=== PATIENT | male | born 1950 | race Caucasian/White ===

== ENCOUNTER 2017-11-09 13:06 | Emergency (ER) | payer MEDICARE, OTHER ==
[2017-11-09] MEDS ORDERED: Lidocaine 1% 30 ML SDV INJECT ONE (14:00)
[2017-11-09 15:02] VITALS: BP 182/94
--- NOTE | 2017-11-10 18:15 | EDM.PDOC ---
ED HPI GENERAL MEDICAL PROBLEM - General Chief Complaint: Head Injury Stated Complaint: FALL Time Seen by Provider: 11/09/17 13:20 Source of Information: Reports: Patient History Limitations: Reports: No Limitations - History of Present Illness INITIAL COMMENTS - FREE TEXT/NARRATIVE: Pt. presents to ER with complaints of finger pain, facial laceration, and neck pain post fall. States that it was a mechanical fall that was caused by tripping on a rub. He did strike the R side of his head and possibly had a brief LOC. No seizure activity or incontinence. States that he did not have any chest pain or shortness of breath prior to or after the fall. No nausea/ vomiting. Denies any blurred vision. He complaints of pain to the 4th digit of the R hand. Location: Reports: Head, Neck, Lower Extremity, Right Right 4-Ring finger Pain Score (Numeric/FACES): 4 - Related Data Allergies Allergy/AdvReac Type Severity Reaction Status Date / Time No Known Allergies Allergy Verified 11/09/17 14:48 Home Meds: Home Meds Allopurinol 150 mg PO DAILY 03/26/13 [History] [place] Fruit [S[place]] 450 mg PO DAILY 03/28/13 [History] Albuterol/Ipratropium [Combivent] 1 puff INH QID #1 mdi 03/29/13 [Rx] Aspirin 1 tab PO DAILY 12/12/14 [History] Calcium Carbonate/Vitamin D3 [Calcium 600 + Vit D Tablet] 1 tab PO DAILY [History] Clopidogrel [Plavix] 75 mg PO DAILY 12/12/14 [History] Desoximetasone [Topicort 0.25% Crm] TOP ASDIRECTED PRN 12/12/14 [History] Fish Oil/Ina-3 Fatty Acids [Fish Oil 1,000 MG] 1 cap PO DAILY 12/12/14 [ History] Fluticasone/Salmeterol [Advair 250-50] 1 puff PO BID 12/12/14 [History] Lisinopril 2.5 mg PO DAILY 12/12/14 [History] Metoprolol Tartrate [Lopressor] 50 mg PO BID 12/12/14 [History] Multivitamin [Multivitamins] 1 tab PO DAILY 12/12/14 [History] Nitroglycerin [Nitrostat] 1 tab SL ASDIRECTED PRN 12/12/14 [History] Sildenafil [Viagra] 100 mg PO BEDTIME PRN 12/12/14 [History] atorvaSTATin [Lipitor] 80 mg PO BEDTIME 12/12/14 [History] metFORMIN [Glucophage] 500 mg PO BIDMEALS 12/12/14 [History] metroNIDAZOLE [Metrocream] 1 applic TP DAILY 12/12/14 [History] Iron,Carbonyl/Vit C/Vit B12/Fa [Iron 100 Plus Tablet] 1 each PO DAILY 12/24/14 [ History] Social & Family History - Tobacco Use Smoking Status *Q: Current Every Day Smoker Years of Tobacco use: 50 Packs/Tins Daily: 1 - Alcohol Use Days Per Week of Alcohol Use: 7 Number of Drinks Per Day: 4 Total Drinks Per Week: 28 - Recreational Drug Use Recreational Drug Use: No ED ROS GENERAL - Review of Systems Review Of Systems: See Below Constitutional: Reports: No Symptoms HEENT: Reports: Other (R temporal laceration) Respiratory: Reports: No Symptoms Cardiovascular: Reports: No Symptoms Endocrine: Reports: No Symptoms GI/Abdominal: Reports: No Symptoms : Reports: No Symptoms Musculoskeletal: Reports: Hand Pain (see hpi) Skin: Reports: No Symptoms Neurological: Reports: No Symptoms Psychiatric: Reports: No Symptoms Hematologic/Lymphatic: Reports: No Symptoms Immunologic: Reports: No Symptoms ED EXAM, GENERAL - Physical Exam Exam: See Below Exam Limited By: No Limitations General Appearance: Alert, WD/WN, No Apparent Distress Eye Exam: Bilateral Eye: EOMI, Normal Fundi, Normal Inspection, PERRL Ears: Normal External Exam, Normal Canal, Hearing Grossly Normal, Normal TMs Ear Exam: Bilateral Ear: Auricle Normal, Canal Normal, TM normal Nose: Normal Inspection, Normal Mucosa, No Blood Throat/Mouth: Normal Inspection, Normal Lips, Normal Teeth, Normal Gums, Normal Oropharynx, Normal Voice, No Airway Compromise Head: Normocephalic, Other (small superficial laceration/contusion to R temporal area) Neck: Tender Lateral, Tender Midline, Other (discomfort with flexion and extension of the cervical spine) Respiratory/Chest: No Respiratory Distress, Lungs Clear, Normal Breath Sounds, No Accessory Muscle Use, Chest Non-Tender Cardiovascular: Normal Peripheral Pulses, Regular Rate, Rhythm, No Edema, No Gallop, No JVD, No Murmur, No Rub Peripheral Pulses: 3+: Radial (L), Radial (R), Dorsalis Pedis (L), Dorsalis Pedis (R) GI/Abdominal: Normal Bowel Sounds, Soft, Non-Tender, No Organomegaly, No Distention, No Abnormal Bruit, No Mass, Pelvis Stable (Male) Exam: Deferred Rectal (Males) Exam: Deferred Back Exam: Normal Inspection, Vertebral Tenderness (discomfort to the cervical spine) Extremities: Other (obvious deformity to DIP and PIP of 4th digit R hand) Neurological: Alert, Oriented, CN II-XII Intact, Normal Cognition, Normal Reflexes, No Motor/Sensory Deficits Psychiatric: Normal Affect, Normal Mood Skin Exam: Warm, Dry, Intact, Normal Color, No Rash ED GENERAL MEDICAL PROCEDURES - Additional/Other Procedure(s) Other (Free Text) Procedure(s): the laceration to the Pt R temporal area was cleansed with chlorhexidine and NS. Dermabond was used to close the laceration that measured approx. 1.5 cm. Attention was given to the dislocated finger. The base of the finger was cleansed with chlorhexidine. A total of 3 ml. of 1% Lidocane was used to perform a digital block of the finger. The finger was subsequently reduced with traction. The PIP re-dislocated, but the final post reduction radiographs show good alignment. Finger was placed in a baseball spint. Course - Vital Signs Last Recorded V/S: Last Vital Signs Temp 36.4 C 11/09/17 13:06 Pulse 104 H 11/09/17 13:06 Resp 20 11/09/17 13:06 BP 182/94 H 11/09/17 13:06 Pulse Ox - Orders/Labs/Meds Meds: Medications Discontinued Medications Generic Name Dose Route Start Last Admin Trade Name Deinq PRN Reason Stop Dose Admin Lidocaine HCl 30 ml 11/09/17 14:00 11/09/17 14:08 Xylocaine-Mpf 1% INJECT 11/09/17 14:01 30 ml ONETIME ONE Administration - Radiology Interpretation Free Text/Narrative:: CT brain and c-spine were obtained and were negative. x-rays of the 4th digit R hand reveal a dislocation of the DIP and PIP Departure - Departure Time of Disposition: 15:15 Disposition: Home, Self-Care 01 Clinical Impression: Concussion with less than 1 hour loss of consciousness, Scalp laceration, Finger dislocation - Discharge Information Instructions: RICE for Routine Care of Injuries, [id number], Head Injury, Adult, Finger or Thumb Dislocation, [id number] Referrals: Stiven Majano PA-C [Primary Care Provider] - Forms: ED Department Discharge Additional Instructions: [place] 5/325mg 1 every 6 hours as needed for pain. Keep splint on at all times. I will let you know about your follow-up appointment with hand surgery. Return to ER if the finger dislocates again, if you have any headache or increased neck pain, lightheadedness, or weakness. - Problem List Review Problem List Initiated/Reviewed/Updated: Yes - Assessment/Plan Plan: [place] [facility] was consulted. Dr. Loving wants the patient seen on Thursday in clinic which was facilitated. [place] 5/325mg 1 every 6 hours as needed for pain. Keep splint on at all times. Hand surgery contacted pt. to set up appt. Return to ER if the finger dislocates again, if you have any headache or increased neck pain, lightheadedness, or weakness.
== END 2017-11-09 15:15 | disposition home or self-care (01) ==
LOC: VM.ED 13:06
DX: S06.0X9A Concussion with loss of consciousness of unspecified duration, initial encounter (principal); S63.284A Dislocation of proximal interphalangeal joint of right ring finger, initial encounter; S63.294A Dislocation of distal interphalangeal joint of right ring finger, initial encounter; S01.01XA Laceration without foreign body of scalp, initial encounter; F17.210 Nicotine dependence, cigarettes, uncomplicated; Z79.899 Other long term (current) drug therapy; Z79.82 Long term (current) use of aspirin; Z79.84 Long term (current) use of oral hypoglycemic drugs; W18.09XA Striking against other object with subsequent fall, initial encounter
CPT/HCPCS: 12001; 12011; 26770; 70450; 72125; 73140-F8; 99283-GF-25; 99284

== ENCOUNTER 2020-02-17 20:49 | Emergency (ER) | payer MEDICARE, OTHER ==
[2020-02-17] MEDS ORDERED: Sodium Chloride 0.9% 10 ML Syringe FLUSH PRN (21:17)
[2020-02-17] MEDS ORDERED: Sodium Chloride 0.9% 1,000 ML IV ONE (21:18)
--- NOTE | 2020-02-17 21:25 | EDM.PDOC ---
ED HPI GENERAL MEDICAL PROBLEM - General Chief Complaint: General Stated Complaint: general, fall Time Seen by Provider: 02/17/20 20:55 Source of Information: Reports: Patient History Limitations: Reports: No Limitations - History of Present Illness INITIAL COMMENTS - FREE TEXT/NARRATIVE: Patient is brought into the emergency department via EMS after sustaining a fall at a local bar. Patient states that he was trying to ambulate and ended up falling landing on his side. He denies hitting his head or causing any injury however he was unable to get up. He sat there for a while and ended up having bystanders called 911 to help to do a lift assist. Ambulance felt that it was advisable to have the patient evaluated in cleared at the emergency department. Currently patient states he has no concerns or complaints and denies any injuries. Patient denies any chest pain, shortness of breath, dizziness, lightheadedness, blurred vision, numbness or tingling, neck pain, back pain, pelvic pain, generalized weakness, abdominal pain, genitourinary concerns or loss of bowel or bladder, or peripheral edema. Dates that he does have a longstanding history of COPD and shortness of breath. He states that his shortness of breath is ongoing and continuous. He does not feel that his shortness of breath is anything new or increased/insignificance. He said it has been at its baseline. He continues to use his inhaler multiple times a day on a regular basis to help with his shortness of breath. Patient states he also continues to smoke daily and has not cut back. Onset: Sudden Quality: Reports: Other Severity: Mild Improves with: Reports: None Worsens with: Reports: None Associated Symptoms: Reports: No Other Symptoms - Related Data Allergies Allergy/AdvReac Type Severity Reaction Status Date / Time No Known Allergies Allergy Verified 02/17/20 21:30 Home Meds: Home Meds allopurinoL [Allopurinol] 150 mg PO DAILY 03/26/13 [History] Saw [place] Fruit [Saw [place]] 450 mg PO DAILY 03/28/13 [History] Albuterol/Ipratropium [Combivent] 1 puff INH QID #1 mdi 03/29/13 [Rx] Aspirin 1 tab PO DAILY 12/12/14 [History] Calcium Carbonate/Vitamin D3 [Calcium 600 + Vit D Tablet] 1 tab PO DAILY 12/12/14 [History] Clopidogrel [Plavix] 75 mg PO DAILY 12/12/14 [History] Desoximetasone [Topicort 0.25% Crm] TOP ASDIRECTED PRN 12/12/14 [History] Fish Oil/[place]-3 Fatty Acids [Fish Oil 1,000 MG] 1 cap PO DAILY 12/12/14 [History] Fluticasone/Salmeterol [Advair 250-50] 1 puff PO BID 12/12/14 [History] Lisinopril 2.5 mg PO DAILY 12/12/14 [History] Metoprolol Tartrate [Lopressor] 50 mg PO BID 12/12/14 [History] Multivitamin [Multivitamins] 1 tab PO DAILY 12/12/14 [History] Nitroglycerin [Nitrostat] 1 tab SL ASDIRECTED PRN 12/12/14 [History] Sildenafil [Viagra] 100 mg PO BEDTIME PRN 12/12/14 [History] atorvaSTATin [Lipitor] 80 mg PO BEDTIME 12/12/14 [History] metFORMIN [Glucophage] 500 mg PO BIDMEALS 12/12/14 [History] metroNIDAZOLE [Metrocream] 1 applic TP DAILY 12/12/14 [History] Iron,Carb/Vit C/Vit B12/Folic [Iron 100 Plus Tablet] 1 each PO DAILY 12/24/14 [History] Meclizine [Antivert] 25 mg PO Q6H PRN #15 tab 02/17/20 [Rx] ED ROS GENERAL - Review of Systems Review Of Systems: See Below Constitutional: Reports: No Symptoms HEENT: Reports: No Symptoms Respiratory: Reports: No Symptoms Cardiovascular: Reports: No Symptoms Endocrine: Reports: No Symptoms GI/Abdominal: Reports: No Symptoms : Reports: No Symptoms Musculoskeletal: Reports: No Symptoms Skin: Reports: No Symptoms Neurological: Reports: No Symptoms Psychiatric: Reports: No Symptoms Hematologic/Lymphatic: Reports: No Symptoms Immunologic: Reports: No Symptoms ED EXAM, GENERAL - Physical Exam Exam: See Below General Appearance: Alert, WD/WN, No Apparent Distress Eye Exam: Bilateral Eye: Nystagmus, PERRL Ears: Normal External Exam, Normal Canal, Hearing Grossly Normal Throat/Mouth: Normal Inspection, Normal Lips, Normal Teeth, No Airway Compromise Head: Atraumatic, Normocephalic Neck: Normal Inspection, Supple, Non-Tender, Full Range of Motion Respiratory/Chest: No Respiratory Distress, Lungs Clear, Normal Breath Sounds, No Accessory Muscle Use, Chest Non-Tender Cardiovascular: Normal Peripheral Pulses, Regular Rate, Rhythm, No Edema Back Exam: Normal Inspection, Full Range of Motion Extremities: Normal Inspection, Normal Range of Motion, Non-Tender, Normal Capillary Refill Neurological: Alert, Oriented, CN II-XII Intact Psychiatric: Normal Affect, Normal Mood Skin Exam: Warm, Dry, Intact, Normal Color Course - Vital Signs Last Recorded V/S: Last Vital Signs Temp 37.7 C 02/17/20 20:49 Pulse 92 02/17/20 20:49 Resp 20 02/17/20 20:49 BP 146/101 H 02/17/20 20:49 Pulse Ox 91 L 02/17/20 20:49 - Orders/Labs/Meds Orders: Active Orders 24 hr Category Date Time Status Head wo Cont [CT] Stat Exams 02/17/20 22:08 Taken Sodium Chloride 0.9% [Saline Flush] Med 02/17/20 21:17 Active 10 ml FLUSH ASDIRECTED PRN Peripheral IV Insertion Adult [OM.PC] Stat Oth 02/17/20 21:17 Ordered Medication Orders Sodium Chloride (Saline Flush) 10 ml FLUSH ASDIRECTED PRN PRN Reason: Keep Vein Open Labs: Laboratory Tests 02/17/20 02/17/20 02/17/20 Range/Units 21:27 21:27 22:41 WBC 4.9 (4.0-10.0) x10^3/uL RBC 3.34 L (4.5-6.0) x10^6/uL Hgb 11.1 L D (14.0-18.0) g/dL Hct 33.3 L (40.0-52.0) % MCV 99.7 H D (78.0-93.0) fL MCH 33.2 H (26.0-32.0) pg MCHC 33.3 (32.0-36.0) g/dL RDW Coeff of Andree 12.8 (10.0-15.0) % Plt Count 240 (130-400) x10^3/uL Add Manual Diff Yes Neutrophils % (Manual) 75 (50-80) % Lymphocytes % (Manual) 13 L (25-50) % Atypical Lymphs % 3 H (0) % Monocytes % (Manual) 9 (2-11) % Platelet Estimate Adequate Sodium 133 L (136-145) mmol/L Potassium 3.6 (3.5-5.1) mmol/L Chloride 99 (98-107) mmol/L Carbon Dioxide 21 (21-32) mmol/L Anion Gap 16.6 (10-20) mmol/L BUN 32 H (7-18) mg/dL Creatinine 2.4 H D (0.70-1.30) mg/dL Est Cr Clr Drug Dosing 28.98 mL/min Estimated GFR (MDRD) 27 Glucose 100 (74-106) mg/dL Calcium 8.5 (8.5-10.1) mg/dL Corrected Calcium 9.46 (8.5-10.1) mg/dL Total Bilirubin 0.3 (0.2-1.0) mg/dL AST 25 (15-37) U/L ALT 28 (16-63) U/L Alkaline Phosphatase 85 (46-116) U/L Total Protein 7.5 (6.4-8.2) g/dL Albumin 2.8 L (3.4-5.0) g/dL Globulin 4.7 Albumin/Globulin Ratio 0.60 Urine Color Yellow (YELLOW) Urine Appearance Slightly cloudy H (CLEAR) Urine pH 6.0 (5.0-8.0) Ur Specific [place] 1.020 Urine Protein >=300 H (NEGATIVE) mg/dL Urine Glucose (UA) Negative (NEGATIVE) mg/dL Urine Ketones Trace H (NEGATIVE) mg/dL Urine Occult Blood Moderate H (NEGATIVE) Urine Nitrite Negative (NEGATIVE) Urine Bilirubin Small H (NEGATIVE) Urine Urobilinogen 0.2 (0.2) EU/dL Ur Leukocyte Esterase Negative (NEGATIVE) U Hyaline Cast (Auto) Few Urine RBC 10-20 H (NOT SEEN) /HPF Urine WBC 0-5 (NOT SEEN) /HPF Ur Squamous Epith Cells Not seen (NEGATIVE) /HPF Urine Bacteria Rare (NEGATIVE) /HPF Urine Mucus Few H (NEGATIVE) /LPF Urine Opiates Screen (NEGATIVE) Ur Buprenorphine Scrn (NEGATIVE) Ur Oxycodone Screen (NEGATIVE) Ur EDDP (Meth Metab) (NEGATIVE) Urine Methadone Screen (NEGATIVE) Ur Barbituates Screen (NEGATIVE) Ur Tricyclics Screen (NEGATIVE) Ur Phencyclidine Scrn (NEGATIVE) Ur Amphetamines Screen (NEGATIVE) U Methamphetamines Scrn (NEGATIVE) Urine MDMA Screen (NEGATIVE) U Benzodiazepines Scrn (NEGATIVE) Urine Cocaine Screen (NEGATIVE) U Marijuana (THC) Screen (NEGATIVE) Ethyl Alcohol 3 (0-3) mg/dL 02/17/20 Range/Units 22:41 WBC (4.0-10.0) x10^3/uL RBC (4.5-6.0) x10^6/uL Hgb (14.0-18.0) g/dL Hct (40.0-52.0) % MCV (78.0-93.0) fL MCH (26.0-32.0) pg MCHC (32.0-36.0) g/dL RDW Coeff of Andree (10.0-15.0) % Plt Count (130-400) x10^3/uL Add Manual Diff Neutrophils % (Manual) (50-80) % Lymphocytes % (Manual) (25-50) % Atypical Lymphs % (0) % Monocytes % (Manual) (2-11) % Platelet Estimate Sodium (136-145) mmol/L Potassium (3.5-5.1) mmol/L Chloride (98-107) mmol/L Carbon Dioxide (21-32) mmol/L Anion Gap (10-20) mmol/L BUN (7-18) mg/dL Creatinine (0.70-1.30) mg/dL Est Cr Clr Drug Dosing mL/min Estimated GFR (MDRD) Glucose (74-106) mg/dL Calcium (8.5-10.1) mg/dL Corrected Calcium (8.5-10.1) mg/dL Total Bilirubin (0.2-1.0) mg/dL AST (15-37) U/L ALT (16-63) U/L Alkaline Phosphatase (46-116) U/L Total Protein (6.4-8.2) g/dL Albumin (3.4-5.0) g/dL Globulin Albumin/Globulin Ratio Urine Color (YELLOW) Urine Appearance (CLEAR) Urine pH (5.0-8.0) Ur Specific [place] Urine Protein (NEGATIVE) mg/dL Urine Glucose (UA) (NEGATIVE) mg/dL Urine Ketones (NEGATIVE) mg/dL Urine Occult Blood (NEGATIVE) Urine Nitrite (NEGATIVE) Urine Bilirubin (NEGATIVE) Urine Urobilinogen (0.2) EU/dL Ur Leukocyte Esterase (NEGATIVE) U Hyaline Cast (Auto) Urine RBC (NOT SEEN) /HPF Urine WBC (NOT SEEN) /HPF Ur Squamous Epith Cells (NEGATIVE) /HPF Urine Bacteria (NEGATIVE) /HPF Urine Mucus (NEGATIVE) /LPF Urine Opiates Screen Negative (NEGATIVE) Ur Buprenorphine Scrn Negative (NEGATIVE) Ur Oxycodone Screen Negative (NEGATIVE) Ur EDDP (Meth Metab) Negative (NEGATIVE) Urine Methadone Screen Negative (NEGATIVE) Ur Barbituates Screen Negative (NEGATIVE) Ur Tricyclics Screen Negative (NEGATIVE) Ur Phencyclidine Scrn Negative (NEGATIVE) Ur Amphetamines Screen Negative (NEGATIVE) U Methamphetamines Scrn Negative (NEGATIVE) Urine MDMA Screen Negative (NEGATIVE) U Benzodiazepines Scrn Negative (NEGATIVE) Urine Cocaine Screen Negative (NEGATIVE) U Marijuana (THC) Screen Negative (NEGATIVE) Ethyl Alcohol (0-3) mg/dL Meds: Medications Generic Name Dose Route Start Last Admin Trade Name Freq PRN Reason Stop Dose Admin Sodium Chloride 10 ml 02/17/20 21:17 Saline Flush FLUSH ASDIRECTED PRN Keep Vein Open Discontinued Medications Generic Name Dose Route Start Last Admin Trade Name Freq PRN Reason Stop Dose Admin Sodium Chloride 1,000 mls @ 1,000 mls/hr 02/17/20 21:18 Normal Saline IV 02/17/20 22:17 ONETIME ONE - Re-Assessments/Exams Free Text/Narrative Re-Assessment/Exam: Try to ambulate the patient in the emergency department and very unsteady on his feet. Does Prior summary to stand next to him for safety. Did contact his next of kin listed on his contact information Mr. Miguel Sotomayor Who is his brother. He states that he has had gait disturbance for the last many years that he can remember. He states that he goes down to the bar on Fridays and has between 1 and 3 drinks with local friends but does not drink heavily or have any other major concerns. 02/17/20 22:17 Free Text/Narrative Re-Assessment/Exam: 02/17/20 23:[address] scan the patient states he has noticed when he gets up from the seated or laying position lately is when he notices the dizzy spells. he did not disclose that information previous to this time. Patient remained alert and oriented. VSS. Gait is unsteady but is able to ambulate without assistance but mccarthy recommend someone to be near [facility] if he becomes more unsteady or is dizzy. Brother Jj contacted on phone and states He has noticed that his brother has become more unsteady the last 1 to 2 weeks. He states that his cognition has not faltered but his gait disturbance has been more prevalent. Patient lives alone and does not have anyone checking on him regularly. His brother states that he will help his brother through the weekend until he can be reevaluated again on Thursday to ensure he is progressing in the positive manner if not look at further imaging or medical treatment options if necessary if the gait disturbance does not improve. Departure - Departure Time of Disposition: 23:20 Disposition: Home, Self-Care 01 Condition: Good Clinical Impression: Vertigo, Unsteady gait Fall Qualifiers: Encounter type: initial encounter Qualified Code(s): W19.XXXA - Unspecified f all, initial encounter - Discharge Information *PRESCRIPTION DRUG MONITORING PROGRAM REVIEWED*: Not Applicable *COPY OF PRESCRIPTION DRUG MONITORING REPORT IN PATIENT MARIA FERNANDA: Not Applicable Instructions: Fall Prevention in the Home, Adult, [id number], Vertigo, [id number], Meclizine tablets or capsules Referrals: Stiven Majano PA-C [Primary Care Provider] - Forms: ED Department Discharge Additional Instructions: 1. rest 2. increase your water intake 3. Continue all at home medications 4. Activity and diet as tolerated 5. Can take over the counter Tylenol for any pain or discomfort 6. Follow up with PCP if symptoms continue, return, or progress 7. Call with any questions or concerns 8. Recommendations are to be re-evaluated in the Clinic on Thursday 9. CT scan completed tonight did not show any major changes or bleeding, labs negative, and urine did not show an infection 10. When standing up make sure you are getting up slowly and taking your time. Sepsis Event Note (ED) - Focused Exam Vital Signs: Vital Signs Temp Pulse Resp BP Pulse Ox 02/17/20 20:49 37.7 C 92 20 146/101 H 91 L - My Orders Last 24 Hours: My Active Orders 02/17/20 21:17 Sodium Chloride 0.9% [Saline Flush] 10 ml FLUSH ASDIRECTED PRN Peripheral IV Insertion Adult [OM.PC] Stat 02/17/20 22:08 Head wo Cont [CT] Stat - Assessment/Plan Last 24 Hours: My Active Orders 02/17/20 21:17 Sodium Chloride 0.9% [Saline Flush] 10 ml FLUSH ASDIRECTED PRN Peripheral IV Insertion Adult [OM.PC] Stat 02/17/20 22:08 Head wo Cont [CT] Stat Assessment:: 1. fall 2. unsteady gait Plan: 1. Labs completed in the ER. Results reviewed with the patient 2. IV initiated in the emergency department 3. IV fluids provided 4. Labs completed in the ER 5. 6. Patient and nursing staff was updated regarding the plan of care 7. Education provided the patient regarding activity, diet, rest, [id number] medication modalities, and follow-up care was provided 8. Patient and family are agreeable to the above plan of care 9. All questions and concerns were addressed with the patient and family prior to discharge
[2020-02-17 21:50] LABS: ANION GAP 16.6 mmol/L (10-20)
[2020-02-17 22:44] LABS: BUPRENORPHINE,URINE NEGATIVE (NEGATIVE); MARIJUANA,URINE NEGATIVE (NEGATIVE); METHYLENEDIOXYMETHAMP,UR NEGATIVE (NEGATIVE); PHENCYCLIDINE,URINE NEGATIVE (NEGATIVE)
[2020-02-17] MEDS ORDERED: Meclizine 25 MG Tab PO ONE (23:26)
[2020-02-18 00:28] VITALS: BP 130/84; PULSE 90
--- NOTE | 2020-02-18 10:16 | CT ---
[id number] CT/CT Head WO IV EXAM: CT Head WO IV CLINICAL DATA: FALLS, UNSTEADY GAIT. COMPARISON STUDY: None FINDINGS: No intracranial hemorrhage, extra-axial fluid collection, mass, or acute ischemia. Generalized parenchymal atrophy with scattered areas of nonspecific white matter disease, commonly seen as sequela of chronic microvascular ischemia. Soft tissues are unremarkable. Mild to moderate mucosal thickening without evidence of aggressive sinusitis. The mastoid air cells are well-aerated and clear. IMPRESSION: No acute intracranial findings. Carlos A Macias DO 02/18/20 1004 Thank you for allowing us to participate in the care of your patient.
== END 2020-02-17 23:40 | disposition home or self-care (01) ==
LOC: VM.ED 20:49
DX: R42 Dizziness and giddiness (principal); R26.81 Unsteadiness on feet; W10.9XXA Fall (on) (from) unspecified stairs and steps, initial encounter; Y92.009 Unspecified place in unspecified non-institutional (private) residence as the place of occurrence of the external cause; Z79.899 Other long term (current) drug therapy
CPT/HCPCS: 36415; 70450; 80053; 80305; 80307; 81001; 85025; 99284; 99285; A9270; J7030